=== PATIENT | female | born 1950 | race Caucasian/White ===

== ENCOUNTER → 2016-06-24 | Outpatient (CLI) | payer BC ==
--- NOTE | 2016-06-24 16:23 | RADRPT ---
PROCEDURE: Parathyroid sestamibi scan CLINICAL INDICATION: 66 -year-old patient with hyperparathyroidism. TECHNIQUE: Following the intravenous injection of 21.5 mCi of Tc-99m Sestamibi, planar images of t he neck and chest were obtained at 5 minutes and 3 hours post injection. COMPARISON: No prior sestamibi scans. FINDINGS: The thyroid gland is well visualized on the early images, appears to be enlarged. No abnormal focal areas of increased activity are seen in the thyroid gland and in the remainder of the neck and chest. Physiologic activity is seen in the salivary glands. IMPRESSION: No abnormal areas of increased radiotracer concentration in the neck and chest regions to suggest th e presence of a scintigraphically detectable parathyroid adenoma. RPTAT: HH .Marcia Velazco MD, Date Time Electronically viewed and signed by .Marcia Velazco MD, on 06/24/2016 16:22 .L/
== END | disposition home or self-care (01) ==
LOC: NUC 09:35
PROVIDERS: ATTEND Internal Medicine Nephrology
DX: E05.90 Thyrotoxicosis, unspecified without thyrotoxic crisis or storm (principal)
CPT/HCPCS: 78070; A9500